=== PATIENT | male | born 1970 | race Hispanic/Latino ===

== ENCOUNTER 2017-11-29 15:42 | Emergency (ER) | payer BC ==
[2017-11-29] MEDS ORDERED: FAMOTIDINE/PF 20 MG/2 ML VIAL IV ONE (15:48)
[2017-11-29] MEDS ORDERED: METHYLPREDNISOLONE SOD SUCC 125MG/2ML VIAL ONE (15:48)
[2017-11-29] MEDS ORDERED: FAMOTIDINE 20MG TAB 20 MG TAB ONE (15:50)
== END 2017-11-29 17:56 | disposition home or self-care (01) ==
LOC: EDH 15:42
DX: T78.49XA Other allergy, initial encounter (principal); Z91.030 Bee allergy status; W57.XXXA Bitten or stung by nonvenomous insect and other nonvenomous arthropods, initial encounter
CPT/HCPCS: 96374; 99284; J2930; J3490

== ENCOUNTER 2019-01-22 16:44 | Emergency (ER) | payer BC ==
[2019-01-22] MEDS ORDERED: TETANUS/DIPHTHERIA TOXOID [ADULT] 0.5 ML VIAL IM ONE (17:29)
[2019-01-22] MEDS ORDERED: HYDROCODONE/ACETAMINOPHEN 10/325 MG TAB ONE (17:29)
[2019-01-22] MEDS ORDERED: ONDANSETRON ODT 4 MG TAB ONE (17:30)
== END 2019-01-22 18:54 | disposition home or self-care (01) ==
LOC: EDH 16:44
DX: S00.81XA Abrasion of other part of head, initial encounter (principal); S40.212A Abrasion of left shoulder, initial encounter; W22.8XXA Striking against or struck by other objects, initial encounter; Y93.89 Activity, other specified; Y92.89 Other specified places as the place of occurrence of the external cause; Y99.8 Other external cause status
CPT/HCPCS: 70450; 72125; 73030; 90471; 90714